=== PATIENT | male | born 1960 | race Caucasian/White ===

== ENCOUNTER 2016-07-18 09:15 | Observation (INO) | payer SELFPAY ==
[~2016-07-18] VITALS: Ht 175.3 cm; Wt 75.0 kg
[~2016-07-18 09:15] MED LIST: ATARAX,VISTARIL50 MG PO; BACTRIM,SEPT1 TABLET PO; CITALOPRAM HBR10 MG PO; KEFLEX500 MG PO; LISINOPRIL10 MG PO; MORPHINE SULFAT15 M1 PO; ZITHROMAX Z-PA250 MG PO; ZOFRAN ODT4 MG PO
[2016-07-18 10:32] LABS: HEMATOCRIT 39.4 % (38.0-50.0); MCH 34.2 PG (29.0-34.0); MCV 97.8 FL (86-99); MEAN PLAT.VOLUME 9.5 uM^3 (9.0-12.4); PLATELET COUNT 116 K/uL (156-360); RBC DIS.WIDTH-CV 12.5 % (11.8-14.6); RBC DIS.WIDTH-SD 45.1 % (39-53); RED BLOOD COUNT 4.03 M/uL (4.00-5.50); WHITE BLOOD COUNT 4.7 K/uL (4.1-10.2)
[2016-07-18 10:45] LABS: CHLORIDE 103 mEq/L (99-109); POTASSIUM 3.6 mEq/L (3.7-5.4); SODIUM 137 mEq/L (136-147)
[2016-07-18 10:47] LABS: GLUCOSE 89 mg/dL (70-99)
[2016-07-18 10:48] LABS: ANION GAP 12 MEQ/L (2-14)
[2016-07-18 10:50] LABS: GFR ESTIMATE (CALCULATED) > 59 mL/min/
[2016-07-18 10:51] LABS: UREA NITROGEN (BUN) 12 mg/dL (9-23)
[2016-07-18 10:57] LABS: TROP-I INTERPRETATION NEGATIVE; TROPONIN-I < 0.01 ng/mL (0.0-0.30)
[2016-07-18] MEDS ORDERED: MORPHINE SULFAT15 M1 PO (16:04)
[2016-07-18 17:17] LABS: SAMPLE HEMOLYSIS CHECK 0; SAMPLE ICTERIC CHECK 0; SAMPLE LIPEMIA CHECK 0
[2016-07-18 17:22] LABS: Estimated Average Glucose 94 mg/dL (70-123); HDL CHOLESTEROL 86 MG/DL (Desirable>=40); HEMOGLOBIN A1c (GLYCOHEMOGLOB) 4.9 % HGB (Below 5.7); LDL CHOLESTEROL 70 mg/dL (Desirable<100); NON-HDL CHOLESTEROL 83 mg/dL (Desirable<160); TOTAL CHOLESTEROL 169 mg/dL (Desirable<200); TRIGLYCERIDES 63 MG/DL (Normal: <150)
[2016-07-18 17:30] VITALS: BP 161/97
[2016-07-18 23:50] VITALS: BP 15/93; BP 155/93
[2016-07-19 04:00] VITALS: BP 142/88
[2016-07-19 06:55] VITALS: BP 135/86
[2016-07-19 06:59] LABS: HEMATOCRIT 37.4 % (38.0-50.0); MCH 35.3 PG (29.0-34.0); MCHC 35.3 G/DL (30.0-36.0); MEAN PLAT.VOLUME 10.1 uM^3 (9.0-12.4); PLATELET COUNT 87 K/uL (156-360); RBC DIS.WIDTH-CV 12.4 % (11.8-14.6); RBC DIS.WIDTH-SD 46.4 % (39-53); RED BLOOD COUNT 3.74 M/uL (4.00-5.50); WHITE BLOOD COUNT 3.2 K/uL (4.1-10.2)
[2016-07-19 07:14] LABS: ALKALINE PHOSPHATASE 120 IU/L (3-129); ANION GAP 8 MEQ/L (2-14); CHLORIDE 101 MEQ/L (99-109); GFR ESTIMATE (CALCULATED) > 59 mL/min/; GLUCOSE 78 mg/dL (70-99); POTASSIUM 3.5 MEQ/L (3.7-5.4); SAMPLE HEMOLYSIS CHECK 0; SAMPLE ICTERIC CHECK 0; SAMPLE LIPEMIA CHECK 0; SODIUM 135 MEQ/L (136-147); TOTAL BILIRUBIN 1.4 MG/DL (0.0-1.0); UREA NITROGEN (BUN) 10 mg/dL (9-23)
[2016-07-19 09:21] LABS: TREPONEMA ANTIBODY NEGATIVE (NEGATIVE)
[2016-07-19 11:44] VITALS: BP 140/88
[2016-07-19] MEDS ORDERED: NICOTINE PATCH1 EAC2 TD (11:54)
[2016-07-19] MEDS ORDERED: THERAGRAN1 TABLET PO (11:56)
[2016-07-19] MEDS ORDERED: FOLIC ACID1 MG PO (11:56)
[2016-07-19] MEDS ORDERED: CHLORDIAZEPOXID25 MG PO (11:56)
[2016-07-19] MEDS ORDERED: B-1100 MG PO (11:56)
[2016-07-19 15:26] LABS: CHLORIDE 102 mEq/L (99-109); MAGNESIUM 1.4 mg/dL (1.3-2.7); SODIUM 132 mEq/L (136-147)
[2016-07-19 15:29] LABS: ANION GAP 4 MEQ/L (2-14)
[2016-07-19 15:31] LABS: GFR ESTIMATE (CALCULATED) > 59 mL/min/
[2016-07-19 15:32] LABS: UREA NITROGEN (BUN) 10 mg/dL (9-23)
[2016-07-19 15:36] LABS: GLUCOSE 99 mg/dL (70-99)
[2016-07-19 16:09] LABS: TROP-I INTERPRETATION NEGATIVE; TROPONIN-I < 0.01 ng/mL (0.0-0.30)
[2016-07-19 19:41] VITALS: BP 131/80
[2016-07-19 23:44] VITALS: BP 139/85
[2016-07-20 04:20] VITALS: BP 136/82
[2016-07-20 08:01] LABS: ANION GAP 5 MEQ/L (2-14); CHLORIDE 102 MEQ/L (99-109); GFR ESTIMATE (CALCULATED) > 59 mL/min/; GLUCOSE 81 mg/dL (70-99); POTASSIUM 3.9 MEQ/L (3.7-5.4); SAMPLE HEMOLYSIS CHECK 0; SAMPLE ICTERIC CHECK 0; SAMPLE LIPEMIA CHECK 0; SODIUM 135 MEQ/L (136-147); UREA NITROGEN (BUN) 10 mg/dL (9-23)
[2016-07-20 08:13] VITALS: BP 138/90
== END 2016-07-20 16:04 | disposition home or self-care (01) ==
LOC: EME 09:15 → EDOF 16:18 → 5WEST 16:18 → EDOF 16:18 → 5WEST 17:25
PROVIDERS: Hospitalist; Internal Medicine; Nurse Practitioner Adult Health
DX: R47.81 Slurred speech (principal); R27.0 Ataxia, unspecified; R26.9 Unspecified abnormalities of gait and mobility; S22.41XA Multiple fractures of ribs, right side, initial encounter for closed fracture; V09.20XA Pedestrian injured in traffic accident involving unspecified motor vehicles, initial encounter; Y93.01 Activity, walking, marching and hiking; J43.9 Emphysema, unspecified; M54.9 Dorsalgia, unspecified; R42 Dizziness and giddiness; R10.12 Left upper quadrant pain; F32.9 Major depressive disorder, single episode, unspecified; I10 Essential (primary) hypertension; Z88.1 Allergy status to other antibiotic agents; F17.210 Nicotine dependence, cigarettes, uncomplicated; K74.60 Unspecified cirrhosis of liver; F10.10 Alcohol abuse, uncomplicated; I47.2 Ventricular tachycardia
CPT/HCPCS: 70450; 70551; 71020; 71100; 71260; 72125; 72129; 72132; 74177; 80048; 80048 91; 80053; 80061; 83036; 83735; 84484; 85027; 86780; 93005; 93306; 93880; 99281; 99285; G0378; G8978 GP CH; G8979 GP CH; G8980 GP CH; J2405; J3411; J3475; J7030

== ENCOUNTER 2017-09-05 12:16 | Emergency (ER) | payer SELFPAY ==
[~2017-09-05] VITALS: Ht 175.3 cm; Wt 76.4 kg
[~2017-09-05 12:16] MED LIST changes: +B-1100 MG PO; +CHLORDIAZEPOXID25 MG PO; +FOLIC ACID1 MG PO; +NICOTINE PATCH1 EAC2 TD; +THERAGRAN1 TABLET PO
[2017-09-05 13:16] LABS: HEMATOCRIT 44.1 % (38.0-50.0); HEMOGLOBIN 16.1 G/DL (12.5-16.6); MCH 35.5 PG (29.0-34.0); MCHC 36.5 G/DL (30.0-36.0); MCV 97.1 FL (86-99); PLATELET COUNT 147 K/uL (156-360); RBC DIS.WIDTH-CV 12.9 % (11.8-14.6); RBC DIS.WIDTH-SD 46.3 % (39-53); RED BLOOD COUNT 4.54 M/uL (4.00-5.50); WHITE BLOOD COUNT 7.2 K/uL (4.1-10.2)
[2017-09-05 13:23] LABS: ALBUMIN 4.6 g/dL (3.2-4.8); CHLORIDE 99 mEq/L (99-109); POTASSIUM 4.8 mEq/L (3.7-5.4); SODIUM 137 mEq/L (136-147)
[2017-09-05 13:26] LABS: GLUCOSE 90 mg/dL (70-99)
[2017-09-05 13:28] LABS: TOTAL BILIRUBIN 1.5 mg/dL (0.0-1.0)
[2017-09-05 13:29] LABS: ALKALINE PHOSPHATASE 86 IU/L (3-129); CREATININE 1.4 mg/dL (0.6-1.3); GFR ESTIMATE (CALCULATED) 55 mL/min/ (58.99-99999)
[2017-09-05 13:30] LABS: UREA NITROGEN (BUN) 61 mg/dL (9-23)
[2017-09-05 13:31] LABS: AST (GOT) 77 IU/L (2-34)
[2017-09-05 13:32] LABS: ALT (GPT) 44 IU/L (3-49)
[2017-09-05 14:51] LABS: SERUM ETHYL ALCOHOL 233 mg/dL
[2017-09-05 14:54] LABS: ACETAMINOPHEN (TYLENOL) < 10 mcg/mL (10-30); SALICYLATE < 5.0 MG/DL (15-30)
[2017-09-05 14:59] LABS: TROP-I INTERPRETATION NEGATIVE; TROPONIN-I < 0.01 ng/mL (0.0-0.30)
[2017-09-05] MEDS ORDERED: REMERON30 M2 PO (16:52)
[2017-09-05 17:28] VITALS: BP 124/76
== END 2017-09-05 17:30 | disposition home or self-care (01) ==
LOC: EME 12:16 → EXP 12:16
PROVIDERS: Physician Assistant
DX: F32.9 Major depressive disorder, single episode, unspecified (principal); F10.10 Alcohol abuse, uncomplicated; N28.9 Disorder of kidney and ureter, unspecified; Y90.7 Blood alcohol level of 200-239 mg/100 ml; I10 Essential (primary) hypertension; Z88.1 Allergy status to other antibiotic agents; F17.200 Nicotine dependence, unspecified, uncomplicated
CPT/HCPCS: 71046; 80053; 81003; 84484; 85027; 90839; 99281; 99283; G0480; J7030

== ENCOUNTER 2017-09-07 08:00 | Inpatient (IN) | payer OTHER ==
[~2017-09-07] VITALS: Ht 175.3 cm; Wt 78.0 kg
[~2017-09-07 08:00] MED LIST changes: +REMERON30 M2 PO
[2017-09-07 08:35] LABS: HEMATOCRIT 41.9 % (38.0-50.0); HEMOGLOBIN 15.6 G/DL (12.5-16.6); MCHC 37.2 G/DL (30.0-36.0); MCV 96.8 FL (86-99); PLATELET COUNT 113 K/uL (156-360); RBC DIS.WIDTH-SD 46.5 % (39-53); RED BLOOD COUNT 4.33 M/uL (4.00-5.50); WHITE BLOOD COUNT 3.9 K/uL (4.1-10.2)
[2017-09-07 08:43] LABS: ALBUMIN 4.2 g/dL (3.2-4.8); CHLORIDE 102 mEq/L (99-109); POTASSIUM 4.4 mEq/L (3.7-5.4); SODIUM 138 mEq/L (136-147)
[2017-09-07 08:46] LABS: GLUCOSE 110 mg/dL (70-99); TOTAL PROTEIN 7.1 g/dL (6.4-8.3)
[2017-09-07 08:47] LABS: TOTAL BILIRUBIN 1.4 mg/dL (0.0-1.0)
[2017-09-07 08:48] LABS: SERUM ETHYL ALCOHOL 71 mg/dL
[2017-09-07 08:49] LABS: ALKALINE PHOSPHATASE 80 IU/L (3-129); GFR ESTIMATE (CALCULATED) > 59 mL/min/ (58.99-99999)
[2017-09-07 08:50] LABS: UREA NITROGEN (BUN) 38 mg/dL (9-23)
[2017-09-07 08:51] LABS: AST (GOT) 109 IU/L (2-34)
[2017-09-07 08:52] LABS: ALT (GPT) 61 IU/L (3-49)
[2017-09-07 08:53] LABS: LIPASE 56 U/L (1.0-51.0)
[2017-09-07 08:55] LABS: APPEARANCE CLEAR ((CLEAR)); BILIRUBIN NEGATIVE; BLOOD SMALL; COLOR YELLOW ((YELLOW)); GLUCOSE (STRIP) NEGATIVE; KETONES 5; LEUKOCYTES NEGATIVE; NITRITE NEGATIVE; PROTEIN (STRIP) 100
[2017-09-07 08:58] LABS: BACTERIA NONE SEEN /HPF; EPITHELIAL CELLS NONE SEEN /HPF; MUCUS NONE SEEN /LPF; RED BLOOD CELLS 0-5 /HPF (0-5); WHITE BLOOD CELLS 0-5 /HPF (0-5)
[2017-09-07 09:06] LABS: AMPHETAMINE NEGATIVE (500 ng/mL); BARBITURATES NEGATIVE (200 ng/mL); BENZODIAZEPINES NEGATIVE (150 ng/mL); BUPRENORPHINE NEGATIVE (10 ng/mL); COCAINE NEGATIVE (150 ng/mL); METHADONE NEGATIVE (200 ng/mL); METHAMPHETAMINE NEGATIVE (500 ng/mL); OPIATES (MORPHINE) NEGATIVE (100 ng/mL); OXYCODONE NEGATIVE (100 ng/mL); PHENCYCLIDINE NEGATIVE (25 ng/mL); PROPOXYPHENE NEGATIVE (300 ng/mL); THC CANNABINOIDS NEGATIVE (50 ng/mL); TRICYCLIC ANTIDEPRESSANTS NEGATIVE (300 ng/mL)
[2017-09-07 18:28] VITALS: BP 138/100
[2017-09-08 07:29] VITALS: BP 147/105
[2017-09-08 17:16] VITALS: BP 128/84
[2017-09-09 08:01] VITALS: BP 126/91
[2017-09-09 16:57] VITALS: BP 134/87
[2017-09-10 07:38] VITALS: BP 122/76
[2017-09-10 15:17] VITALS: BP 113/69
[2017-09-11 07:32] VITALS: BP 137/88
[2017-09-11 16:03] VITALS: BP 145/85
[2017-09-12 07:44] VITALS: BP 150/87
[2017-09-12] MEDS ORDERED: DOCUSATE SODIU100 MG PO (09:21)
[2017-09-12] MEDS ORDERED: NALTREXONE HCL50 MG PO (09:21)
[2017-09-12] MEDS ORDERED: Thiamine,Vitamin B1 PO (09:21)
[2017-09-12] MEDS ORDERED: CITALOPRAM HBR20 MG PO (09:21)
[2017-09-12] MEDS ORDERED: ARIPIPRAZOLE5 MG PO (09:21)
[2017-09-12] MEDS ORDERED: FOLIC ACID1 MG PO (09:21)
[2017-09-12 15:57] VITALS: BP 138/99
[2017-09-13 07:44] VITALS: BP 141/78
== END 2017-09-13 11:25 | disposition other institution (70) | DRG 885 ==
LOC: EME 08:00 → 1WEST 13:10 → EDOF 13:10 → ENRESERV 17:48 → 1WEST 17:57
PROVIDERS: Nurse Practitioner Family
DX: F33.2 Major depressive disorder, recurrent severe without psychotic features (principal); R45.851 Suicidal ideations; B88.9 Infestation, unspecified; F10.229 Alcohol dependence with intoxication, unspecified; Y90.3 Blood alcohol level of 60-79 mg/100 ml; F12.10 Cannabis abuse, uncomplicated; F17.210 Nicotine dependence, cigarettes, uncomplicated; F41.9 Anxiety disorder, unspecified; I10 Essential (primary) hypertension; G89.29 Other chronic pain; R23.2 Flushing; K59.00 Constipation, unspecified
CPT/HCPCS: 80053; 81003; 83690; 85027; 90839; 97150 GO; 97165 GO; 99281; 99285; G0480